=== PATIENT | female | born 2000 | race Caucasian/White ===

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

== ENCOUNTER → 2019-01-15 | Outpatient (CLI) | payer BC ==
[~2019-01-15] MED LIST: CYCL10TA29 PO
[2019-01-15 10:59] LABS: PLATELET COUNT, AUTOMATED 347 K/uL (150-450)
[2019-01-15 11:09] LABS: INR 1.08
== END ==
LOC: LAB 10:23
PROVIDERS: ATTEND Family Medicine
DX: N92.0 Excessive and frequent menstruation with regular cycle (principal); D50.0 Iron deficiency anemia secondary to blood loss (chronic)
CPT/HCPCS: 36415; 82040; 82247; 82310; 82374; 82435; 82565; 82947; 83540; 83550; 84075; 84132; 84155; 84295; 84443; 84450; 84460; 84520; 85025; 85240; 85245; 85246; 85610; 85730

== ENCOUNTER → 2019-01-31 | Outpatient (CLI) | payer BC | LOC: LAB 14:39 | PROVIDERS: ATTEND Family Medicine | DX: R79.1 Abnormal coagulation profile (principal) | CPT/HCPCS: 36415; 85270 ==